=== PATIENT | female | born 1955 | race African-American/Black ===

== ENCOUNTER 2016-03-26 17:59 | Inpatient (IN) | payer OTHER ==
[2016-03-26 20:17] VITALS: BMI 28.1
--- NOTE | 2016-03-26 21:42 | HP ---
Admission ROS [facility] Chief Complaint: I WANT TO GO TO REHAB Allergies/Adverse Reactions: Allergies Allergy/AdvReac Type Severity Reaction Status Date / Time No Known Allergies Allergy Verified 03/26/16 20:51 History of Present Illness: 60 YEARS OLD FEMALE WITH LONG HISTORY OF ALCOHOL NICOTINE DEPENDENCE, HAS DIABETES II ASTHMA AND DEPRESSION IS ADMITTED TO REHAB Exam Limitations: No Limitations - Ebola screening Have you traveled outside of the country in the last 21 days: No Have you had contact with anyone from an Ebola affected area: No Have you been sick,other than usual withdrawal symptoms: No Do you have a fever: No - Review of Systems Constitutional: Weight Stable EENT: reports: Other (EYE GLASSES) Respiratory: reports: SOB with Exertion, Productive cough Cardiac: reports: No Symptoms Reported GI: reports: Constipated : reports: No Symptoms Reported Musculoskeletal: reports: Back Pain, Muscle Pain (LEFT KNEE) Integumentary: reports: Change in Color (RIGHT ANKLE ULCER HEALED) Neuro: reports: No Symptoms reported Endocrine: reports: No Symptoms Reported Hematology: reports: No Symptoms Reported Psychiatric: reports: Judgement Intact, Orientated x3, Depressed Other Systems: Reviewed and Negative Patient History - Patient Medical History Hx Anemia: No Hx Asthma: Yes Hx Chronic Obstructive Pulmonary Disease (COPD): No Hx Cancer: No Hx Cardiac Disorders: No Hx Congestive Heart Failure: No Hx Hypertension: No Hx Hypercholesterolemia: No Hx Pacemaker: No HX Cerebrovascular Accident: No Hx Seizures: No Hx Dementia: No Hx Diabetes: Yes Hx Gastrointestinal Disorders: No Hx Liver Disease: No Hx Genitourinary Disorders: No Hx Sexually Transmitted Disorders: No Hx Renal Disease (ESRD): No Hx Thyroid Disease: No Hx Human Immunodeficiency Virus (HIV): No Hx Hepatitis C: No Hx Depression: Yes Hx Suicide Attempt: No Hx Bipolar Disorder: No Hx Schizophrenia: No - Patient Surgical History Past Surgical History: Yes Hx Neurologic Surgery: No Hx Cataract Extraction: No Hx Cardiac Surgery: No Hx Lung Surgery: No Hx Breast Surgery: No Hx Breast Biopsy: No Hx Abdominal Surgery: No Hx Appendectomy: No Hx Cholecystectomy: No Hx Genitourinary Surgery: No Hx Section: Yes (37 YEARS OLD) Hx Orthopedic Surgery: Yes (RIGHT FOOT 2ND TOE 2015, LEFT KNEE 2014) Hx Hysterectomy: No Anesthesia Reaction: No - PPD History Previous Implant?: Yes Documented Results: Positive w/o proof Implanted On Prior [facility] Admission?: No PPD to be Administered?: No - Reproductive History Patient is a Female of Child Bearing Age (11 -55 yrs old): No - Smoking Cessation Smoking history: Current every day smoker Have you smoked in the past 12 months: Yes Aproximately how many cigarettes per day: 1 Cigars Per Day: 0 Hx Chewing Tobacco Use: No Initiated information on smoking cessation: Yes 'Breaking Loose' booklet given: 03/26/16 - Substance & Tx. History Hx Alcohol Use: Yes Hx Substance Use: Yes Substance Use Type: Alcohol, Cocaine Hx Substance Use Treatment: Yes - Substances Abused Alcohol Route: Oral Frequency: 3-6 times per week Amount used: [id number] BEER Age of first use: 58 Date of Last Use: 03/26/16 Family Disease History - Family Disease History Family Disease History: Diabetes: Father, Mother, Brother, Sister Admission Physical Exam BHS - Vital Signs Vital Signs: Vital Signs - 24 hr 03/26/16 20:13 Temperature 97.6 F Pulse Rate 92 H Respiratory 20 Rate Blood Pressure 130/67 - Physical General Appearance: Yes: No Apparent Distress, Nourished, Appropriately Dressed HEENTM: Yes: Hearing grossly Normal, Normal ENT Inspection, Normocephalic, Normal Voice Respiratory: Yes: Chest Non-Tender, No Respiratory Distress, No Accessory Muscle Use, Crackles, Wheezing, Expiration, Hyperresonant Neck: Yes: Supple, Trachea in good position Breast: Yes: Breasts Symetrical Cardiology: Yes: Regular Rhythm, Regular Rate, S1, S2 Abdominal: Yes: Non Tender, Soft Genitourinary: Yes: Within Normal Limits Back: Yes: Normal Inspection Musculoskeletal: Yes: full range of Motion, Gait Steady, Muscle Pain (LEFT KNEE) Extremities: Yes: Normal Range of Motion, Non-Tender, Other (HAMMER TOE-) Neurological: Yes: Fully Oriented, Alert, Motor Strength 5/5, Normal Mood/Affect , Normal Response Integumentary: Yes: Warm, Erythema (RIGHT ANKLE CHRONIC DM LESION) Lymphatic: Yes: Within Normal Limits - Diagnostic (1) Alcohol dependence with uncomplicated withdrawal Current Visit: Yes Status: Acute (2) Positive PPD, treated Current Visit: Yes Status: Resolved (3) Asthma Current Visit: Yes Status: Acute Qualifiers: Asthma severity: mild persistent Asthma complication type: with status asthmaticus Qualified Code(s): J45.32 - Mild persistent asthma with status asthmaticus (4) COPD (chronic obstructive pulmonary disease) Current Visit: Yes Status: Acute Qualifiers: COPD type: emphysema Emphysema type: unilateral Qualified Code(s ): J43.0 - Unilateral pulmonary emphysema [MacLeod's syndrome] (5) Nicotine dependence Current Visit: Yes Status: Acute Qualifiers: Nicotine product type: cigarettes Substance use status: uncomplicated Qualified Code(s): F17.210 - Nicotine dependence, cigarettes, uncomplicated (6) Constipation Current Visit: Yes Status: Acute Qualifiers: Constipation type: slow transit constipation Qualified Code(s): K59.01 - Slow transit constipation (7) Depression (emotion) Current Visit: Yes Status: Suspected Qualifiers: Depression Type: dysthymia Qualified Code(s): F34.1 - Dysthymic disorder (8) Diabetes mellitus, type II, insulin dependent Current Visit: Yes Status: Acute Comment: BGM/METFORMIN/ (9) Diabetes with ulcer of lower extremity Current Visit: Yes Status: Acute Comment: RIGHT ANKLE (10) Urinary incontinence Current Visit: Yes Status: Acute Qualifiers: Urinary Incontinence type: stress incontinence Qualified Code(s): N39.3 - Stress incontinence (female) (male) (11) Diabetes with neurologic complications Current Visit: Yes Status: Acute Qualifiers: Diabetes mellitus type: type 2 Diabetes mellitus complication detail: with polyneuropathy Diabetes mellitus terminal clerk insulin use: with terminal clerk use Qualified Code(s): E11.42 - Type 2 diabetes mellitus with diabetic polyneuropathy; Z79.4 - terminal operations manager (current) use of insulin Cleared for Admission S - Detox or Rehab [facility] Level of Care: Observation Bed Claeared for Rehab Admission: Yes [facility] Breath Alcohol Content Breath Alcohol Content: 0 Urine Pregancy Test - Result Urine Test Results: Negative- NO Line Present Urine Drug Screen - Results Drug Screen Negative: No Urine Drug Screen Results: DEIDRE-Cocaine
[2016-03-26] MEDS ORDERED: P-EPHED 60MG/TRIPROLIDI 2.5MG TABLET PO PRN (21:50)
[2016-03-26] MEDS ORDERED: MAGNESIUM CITRATE 300 ML BOTTLE PO PRN (21:50)
[2016-03-26] MEDS ORDERED: IBUPROFEN 400 MG TABLET (FP) PO PRN (21:50)
[2016-03-26] MEDS ORDERED: MAGNESIUM HYDROX 2400MG/30ML ORAL SUSPENSION 30 ML CUP PO PRN (21:50)
[2016-03-26] MEDS ORDERED: guaiFENesin/D-METHORPHAN HB 10 ML UNIT-DOSE CUPS PO PRN (21:50)
[2016-03-26] MEDS ORDERED: hydrOXYzine PAMOATE 50 MG CAPSULE (FP) PO PRN (22:00)
[2016-03-26] MEDS ORDERED: NICOTINE POLACRILEX 2 MG GUM BUC PRN (22:00)
[2016-03-26] MEDS ORDERED: ALBUTEROL SO4 2.5/IPRATROPIUM 0.5 INH SOL 3 ML VIAL.NEB. NEB PRN (22:10)
[2016-03-26] MEDS ORDERED: DOCUSATE SODIUM 100 MG CAPSULE (FP) PO PRN (22:11)
[2016-03-26] MEDS: THIAMINE HCL 100 MG TABLET (FP) PO SCH (22:30)
[2016-03-26 23:07] LABS: URINE APPEARANCE CLEAR; URINE BILIRUBIN NEGATIVE (NEGATIVE); URINE BLOOD NEGATIVE (NEGATIVE); URINE COLOR YELLOW; URINE GLUCOSE (UA) 3+ (NEGATIVE); URINE KETONE TRACE (NEGATIVE); URINE NITRITE NEGATIVE (NEGATIVE); URINE UROBILINOGEN NEGATIVE E.U./dl (0.2-1.0)
[2016-03-26 23:15] LABS: URINE LEUK ESTERASE TRACE (NEGATIVE); URINE PROTEIN 1+ (NEGATIVE)
[2016-03-26 23:18] LABS: URINE BACTERIA RARE /hpf (NONE SEEN); URINE HYALINE CAST 1 /lpf; URINE MUCUS RARE; URINE RBC 2 /hpf (0-3); URINE WBC 3 /hpf (3-5)
[2016-03-27] MEDS: diphenhydrAMINE HCL 50 MG CAPSULE PO PRN ×2 (00:26→21:36)
[2016-03-27] MEDS: ALBUTEROL SO4 6.7 GM HFA INHALER IH PRN (00:29)
[2016-03-27] MEDS: INSULIN SLIDING SCALE (NOVOLOG) 1 VIAL SQ SCH ×3 (06:13→17:16)
[2016-03-27] MEDS: GABAPENTIN 300 MG CAPSULE (FP) PO SCH ×3 (06:15→21:32)
[2016-03-27] MEDS ORDERED: INSULIN (NOVOLOG) ASPART 100 UNITS/ML 10ML VIAL ONE ×4 (06:15→16:41)
[2016-03-27] MEDS: metFORMIN HCL 500 MG TABLET (FP) PO SCH ×2 (06:15→17:16)
[2016-03-27] MEDS: LOPERAMIDE HCL 2 MG CAPSULE PO PRN ×2 (07:19→13:54)
[2016-03-27 10:16] LABS: MCH 31.3 pg (25.7-33.7); MCHC 32.4 g/dl (32.0-36.0); MEAN CELL VOLUME 96.4 fl (80-96); MEAN PLT VOLUME 9.5 fl (7.5-11.1); PLATELET COUNT 268 K/MM3 (134-434); WHITE BLOOD COUNT 8.4 K/mm3 (4.0-10.0)
[2016-03-27 10:32] LABS: ALBUMIN 3.7 g/dl (3.4-5.0); BILIRUBIN,TOTAL 0.3 mg/dL (0.2-1.0); CREATININE 1.3 mg/dL (0.55-1.02); TOT PROT 7.1 g/dl (6.4-8.2)
[2016-03-27] MEDS: NICOTINE 14 MG/24 HOURS TOPICAL PATCH TD SCH (10:42)
[2016-03-27] MEDS: OXYBUTYNIN CHLORIDE 5 MG TABLET PO SCH ×2 (10:43→21:31)
[2016-03-27] MEDS: predniSONE 20 MG TABLET (UD) PO SCH (10:43)
[2016-03-27] MEDS: PRENATAL VITAMINS W/ FOLIC ACID TABLET (FP) PO SCH (10:43)
[2016-03-27] MEDS: BUDESONIDE/FORMETEROL FUMARATE 80/4.5 mcg INHALER IH SCH ×2 (10:44→21:33)
[2016-03-27 11:45] LABS: HIV 1 & 2 AB NEGATIVE; HIV 1 AGp24 NEGATIVE
[2016-03-27] MEDS: THIAMINE HCL 100 MG TABLET (FP) PO SCH (21:31)
[2016-03-27] MEDS: ATORVASTATIN CA 10 MG TABLET (FP) PO SCH (21:34)
[2016-03-27] MEDS: MONTELUKAST NA 10 MG TABLET PO SCH (21:35)
[2016-03-28] MEDS: GABAPENTIN 300 MG CAPSULE (FP) PO SCH ×3 (06:12→21:12)
[2016-03-28] MEDS: metFORMIN HCL 500 MG TABLET (FP) PO SCH ×2 (06:12→16:51)
[2016-03-28] MEDS: INSULIN SLIDING SCALE (NOVOLOG) 1 VIAL SQ SCH ×3 (06:12→16:52)
[2016-03-28] MEDS: OXYBUTYNIN CHLORIDE 5 MG TABLET PO SCH ×2 (10:24→21:12)
[2016-03-28] MEDS: predniSONE 20 MG TABLET (UD) PO SCH (10:24)
[2016-03-28] MEDS: NICOTINE 14 MG/24 HOURS TOPICAL PATCH TD SCH (10:24)
[2016-03-28] MEDS: PRENATAL VITAMINS W/ FOLIC ACID TABLET (FP) PO SCH (10:25)
[2016-03-28] MEDS: BUDESONIDE/FORMETEROL FUMARATE 80/4.5 mcg INHALER IH SCH ×2 (10:26→21:08)
[2016-03-28] MEDS ORDERED: INSULIN (NOVOLOG) ASPART 100 UNITS/ML 10ML VIAL ONE ×2 (12:04→16:51)
--- NOTE | 2016-03-28 15:23 | HP ---
Psychiatrist Admission - Data Date of interview: 03/28/16 Admission source: [facility] Identifying data: This is the first admission to [address] [place] [address] for this 60 years old AA single female mother of 2 grown children ,resides alone in Supportive Housing,[place]. Medical History: Significant for DM,Urinary incontinence,COPD. Psychiatric History: Patient denies previous psychiatric history ,reports some sleeping difficulties ,used to take Ambien,Benadryl for sleep. Physical/Sexual Abuse/Trauma History: denies Vital Signs: Vital Signs - 24 hr 03/28/16 03/28/16 03/28/16 00:30 03:30 06:37 Temperature 98.2 F Pulse Rate 65 Respiratory 18 18 16 Rate Blood Pressure 148/98 Allergies/Adverse Reactions: Allergies Allergy/AdvReac Type Severity Reaction Status Date / Time No Known Allergies Allergy Verified 03/26/16 20:51 Date of last physical exam: 03/26/16 Concur with the findings of this exam: Yes - Substance Abuse/Tx History Hx Alcohol Use: No (socially) Hx Substance Use: Yes (reports started cocaine since 30 yo) Substance Use Type: Cocaine Hx Substance Use Treatment: Yes (completed 28 days in 1989([facility] program)) - Admission Criteria Previous failed treatment: Yes Poor recovery environment: Yes Comorbidities: Yes Lacks judgement: Yes Mental Status Exam - Mental Status Exam Alert and Oriented to: Time, Place, Person Cognitive Function: Grossly Intact Patient Appearance: Well Groomed Mood: Euthymic Affect: Mood Congruent Patient Behavior: Cooperative Speech Pattern: Clear Voice Loudness: Normal Thought Process: Goal Oriented Thought Disorder: Not Present Hallucinations: Denies Suicidal Ideation: Denies Homicidal Ideation: Denies Insight/Judgement: Fair Sleep: Fair Appetite: Good Muscle strength/Tone: Normal Gait/Station: Normal Psychiatric Findings - Problem List ([place] 1, 2,3) (1) Asthma Current Visit: Yes Status: Chronic Qualifiers: Asthma severity: mild persistent Asthma complication type: with status asthmaticus Qualified Code(s): J45.32 - Mild persistent asthma with status asthmaticus (2) COPD (chronic obstructive pulmonary disease) Current Visit: Yes Status: Chronic Qualifiers: COPD type: emphysema Emphysema type: unilateral Qualified Code(s ): J43.0 - Unilateral pulmonary emphysema [MacLeod's syndrome] (3) Diabetes mellitus, type II, insulin dependent Current Visit: Yes Status: Chronic Comment: BGM/METFORMIN/ (4) Diabetes with ulcer of lower extremity Current Visit: Yes Status: Chronic Comment: RIGHT ANKLE (5) Nicotine dependence Current Visit: Yes Status: Acute Qualifiers: Nicotine product type: cigarettes Substance use status: uncomplicated Qualified Code(s): F17.210 - Nicotine dependence, cigarettes, uncomplicated (6) Urinary incontinence Current Visit: Yes Status: Chronic Qualifiers: Urinary Incontinence type: stress incontinence Qualified Code(s): N39.3 - Stress incontinence (female) (male) (7) Cocaine dependence Current Visit: Yes Status: Chronic (8) Substance-induced sleep disorder Current Visit: Yes Status: Chronic - Initial Treatment Plan Initial Treatment Plan: Benadryl 100 mg po hs.Will monitor progress.
[2016-03-28] MEDS: MONTELUKAST NA 10 MG TABLET PO SCH (21:10)
[2016-03-28] MEDS: THIAMINE HCL 100 MG TABLET (FP) PO SCH (21:10)
[2016-03-28] MEDS: INSULIN DETEMIR 100 UNITS/ML MDV SQ SCH (21:12)
[2016-03-28] MEDS: diphenhydrAMINE HCL 50 MG CAPSULE PO SCH (21:12)
[2016-03-28] MEDS: ATORVASTATIN CA 10 MG TABLET (FP) PO SCH (21:12)
[2016-03-29] MEDS: metFORMIN HCL 500 MG TABLET (FP) PO SCH ×2 (06:49→17:15)
[2016-03-29] MEDS: GABAPENTIN 300 MG CAPSULE (FP) PO SCH ×3 (06:49→21:30)
[2016-03-29] MEDS: INSULIN SLIDING SCALE (NOVOLOG) 1 VIAL SQ SCH ×3 (06:50→17:14)
[2016-03-29] MEDS: PRENATAL VITAMINS W/ FOLIC ACID TABLET (FP) PO SCH (10:09)
[2016-03-29] MEDS: predniSONE 20 MG TABLET (UD) PO SCH (10:09)
[2016-03-29] MEDS: OXYBUTYNIN CHLORIDE 5 MG TABLET PO SCH ×2 (10:10→21:30)
[2016-03-29] MEDS: NICOTINE 14 MG/24 HOURS TOPICAL PATCH TD SCH (10:10)
[2016-03-29] MEDS: BUDESONIDE/FORMETEROL FUMARATE 80/4.5 mcg INHALER IH SCH ×2 (10:10→21:29)
[2016-03-29] MEDS: ACETAMINOPHEN 325 MG TABLET (FP) PO PRN (10:13)
[2016-03-29] MEDS ORDERED: INSULIN (NOVOLOG) ASPART 100 UNITS/ML 10ML VIAL ONE ×3 (12:08→22:39)
[2016-03-29] MEDS: ATORVASTATIN CA 10 MG TABLET (FP) PO SCH (21:30)
[2016-03-29] MEDS: MONTELUKAST NA 10 MG TABLET PO SCH (21:30)
[2016-03-29] MEDS: diphenhydrAMINE HCL 50 MG CAPSULE PO SCH (21:30)
[2016-03-29] MEDS: THIAMINE HCL 100 MG TABLET (FP) PO SCH (21:30)
[2016-03-29] MEDS: INSULIN DETEMIR 100 UNITS/ML MDV SQ SCH (21:34)
[2016-03-30] MEDS: GABAPENTIN 300 MG CAPSULE (FP) PO SCH ×3 (06:19→21:27)
[2016-03-30] MEDS: metFORMIN HCL 500 MG TABLET (FP) PO SCH ×2 (06:19→17:28)
[2016-03-30] MEDS: INSULIN SLIDING SCALE (NOVOLOG) 1 VIAL SQ SCH ×3 (06:20→17:29)
[2016-03-30] MEDS: OXYBUTYNIN CHLORIDE 5 MG TABLET PO SCH ×2 (10:12→21:27)
[2016-03-30] MEDS: predniSONE 20 MG TABLET (UD) PO SCH (10:12)
[2016-03-30] MEDS: PRENATAL VITAMINS W/ FOLIC ACID TABLET (FP) PO SCH (10:12)
[2016-03-30] MEDS: NICOTINE 14 MG/24 HOURS TOPICAL PATCH TD SCH (10:13)
[2016-03-30] MEDS: BUDESONIDE/FORMETEROL FUMARATE 80/4.5 mcg INHALER IH SCH ×2 (10:13→21:26)
[2016-03-30] MEDS ORDERED: INSULIN (NOVOLOG) ASPART 100 UNITS/ML 10ML VIAL ONE ×3 (11:57→23:42)
[2016-03-30] MEDS: ACETAMINOPHEN 325 MG TABLET (FP) PO PRN (13:48)
[2016-03-30] MEDS: MAG HYDROX/AL HYDROX/SIMETH 30 ML UNIT-DOSE CUP PO PRN (17:31)
[2016-03-30] MEDS: diphenhydrAMINE HCL 50 MG CAPSULE PO SCH (21:27)
[2016-03-30] MEDS: ATORVASTATIN CA 10 MG TABLET (FP) PO SCH (21:27)
[2016-03-30] MEDS: THIAMINE HCL 100 MG TABLET (FP) PO SCH (21:27)
[2016-03-30] MEDS: MONTELUKAST NA 10 MG TABLET PO SCH (21:27)
[2016-03-30] MEDS: IBUPROFEN 600 MG TABLET (FP) PO PRN (21:29)
[2016-03-30] MEDS: INSULIN DETEMIR 100 UNITS/ML MDV SQ SCH (21:31)
[2016-03-30] MEDS ORDERED: INSULIN DETEMIR 100 UNITS/ML MDV SQ ONE (23:42)
[2016-03-31] MEDS: metFORMIN HCL 500 MG TABLET (FP) PO SCH ×2 (06:03→17:06)
[2016-03-31] MEDS: GABAPENTIN 300 MG CAPSULE (FP) PO SCH ×3 (06:03→21:15)
[2016-03-31] MEDS: INSULIN SLIDING SCALE (NOVOLOG) 1 VIAL SQ SCH ×3 (06:04→17:06)
[2016-03-31] MEDS: NICOTINE 14 MG/24 HOURS TOPICAL PATCH TD SCH (10:05)
[2016-03-31] MEDS: PRENATAL VITAMINS W/ FOLIC ACID TABLET (FP) PO SCH (10:06)
[2016-03-31] MEDS: OXYBUTYNIN CHLORIDE 5 MG TABLET PO SCH ×2 (10:06→21:15)
[2016-03-31] MEDS: BUDESONIDE/FORMETEROL FUMARATE 80/4.5 mcg INHALER IH SCH ×2 (10:06→21:17)
[2016-03-31] MEDS: predniSONE 20 MG TABLET (UD) PO SCH (10:06)
[2016-03-31] MEDS ORDERED: INSULIN (NOVOLOG) ASPART 100 UNITS/ML 10ML VIAL ONE ×3 (12:01→22:26)
--- NOTE | 2016-03-31 14:40 | PN ---
Psychiatric Progress Note Vital Signs: Vital Signs Period Temp Pulse Resp BP Sys/Santiago Pulse Ox Last 24 Hr 98.0 F 58-86 16-18 131-146/74-89 Date of Session: 03/31/16 Chief Complaint:: "Paul still having sleeping problems,which makes me nervious, tired." HPI: Patient addressed Cocaine dependnec comorbid with Substance induced mood disorder. Current Medications: Active Medications Generic Name Dose Route Start Last Admin Trade Name Freq PRN Reason Stop Dose Admin Acetaminophen 650 mg 03/26/16 21:50 03/30/16 13:48 Tylenol - PO 650 mg Q4H PRN Administration PAIN Al Hydroxide/Mg Hydroxide 30 ml 03/26/16 21:50 03/30/16 17:31 Mylanta Oral Suspension - PO 30 ml Q6H PRN Administration DYSPEPSIA Albuterol Sulfate 2 puff 03/26/16 22:10 03/27/16 00:29 Ventolin Hfa Inhaler - IH 2 puff Q4H PRN Administration SHORT OF BREATH/WHEEZING Albuterol/Ipratropium 1 amp 03/26/16 22:10 Duoneb - NEB Q6H PRN SHORTNESS OF BREATH Atorvastatin Calcium 10 mg 03/27/16 22:00 03/30/16 21:27 Lipitor - PO 10 mg HS SUGEY Administration Budesonide/Formoterol Fumarate 2 puff 03/27/16 10:00 03/31/16 10:06 Symbicort 80/4.5mcg - IH 2 puff BID SUGEY Administration Diphenhydramine HCl 100 mg 03/28/16 22:00 03/30/16 21:27 Benadryl - PO 100 mg HS SUGEY Administration Docusate Sodium 100 mg 03/26/16 22:11 Colace - PO Q8H PRN CONSTIPATION Eucalyptus/Menthol/Phenol/Sorbitol 1 each 03/26/16 21:50 Cepastat Lozenge - MM Q4H PRN SORE THROAT Gabapentin 600 mg 03/27/16 06:00 03/31/16 14:19 Neurontin - PO 600 mg TID SUGEY Administration Guaifenesin 10 ml 03/26/16 21:50 Robitussin Dm - PO Q6H PRN COUGH Hydroxyzine Pamoate 50 mg 03/26/16 22:00 Vistaril - PO Q4H PRN AGITATION Ibuprofen 600 mg 03/26/16 22:46 03/30/16 21:29 Motrin - PO 600 mg Q6H PRN Administration SEVERE PAIN Insulin Aspart 1 vial 03/27/16 07:00 03/31/16 12:01 Novolog Vial Sliding Scale - SQ 2 units TIDAC SUGEY Administration Protocol Insulin Detemir 10 units 03/28/16 22:00 03/30/16 21:31 Levemir Vial SQ 10 units HS SUGEY Administration Lidocaine 1 patch 03/31/16 14:30 Lidoderm Patch - TP DAILY SUGEY Loperamide HCl 4 mg 03/26/16 21:50 03/27/16 13:54 Imodium - PO 4 mg Q6H PRN Administration DIARRHEA Magnesium Citrate 300 ml 03/26/16 21:50 Citroma - PO Q48H PRN CONSTIPATION Magnesium Hydroxide 30 ml 03/26/16 21:50 Milk Of Magnesia - PO DAILY PRN CONSTIPATION Metformin HCl 500 mg 03/27/16 07:00 03/31/16 06:03 Glucophage - PO 500 mg BID@0700,1630 SUGEY Administration Montelukast Sodium 10 mg 03/27/16 22:00 03/30/16 21:27 Singulair - PO 10 mg HS SUGEY Administration Multi-Ingredient Lotion 1 applic 03/31/16 14:24 Eucerin (Large Jar) - TP BID PRN DRY SKIN Nicotine 14 mg 03/27/16 10:00 03/31/16 10:05 Nicoderm Patch - TD Not Given DAILY SUGEY Nicotine Polacrilex 2 mg 03/26/16 22:00 Nicorette Gum - BUC Q2H PRN NICOTINE REPLACEMENT RX Oxybutynin Chloride 5 mg 03/27/16 10:00 03/31/16 10:06 Ditropan - PO 5 mg BID SUGEY Administration Prednisone 20 mg 03/27/16 10:00 03/31/16 10:06 Deltasone - PO 04/01/16 09:59 20 mg DAILY SUGEY Administration Multivit/Folic Acid/Iron 1 tab 03/27/16 10:00 03/31/16 10:06 Vitamins ([facility]jr) - PO 1 tab DAILY SUGEY Administration Pseudoephedrine/Triprolidine 1 combo 03/26/16 21:50 Actifed - PO TID PRN NASAL CONGESTION Thiamine HCl 100 mg 03/26/16 22:00 03/30/16 21:27 Vitamin B1 - PO 100 mg HS SUGEY Administration Current Side Effect: No Lab tests ordered: No Lab tests reviewed: Yes Provider note:: Patient was evaluated today,chart has been revuewed,medications and treatment plan has been discussed with the patient.Add Seroquel 50 mg po hs to reduce mood instability and sleeping difficulties.Side effcets and benefits of the above medication has been discussed. Supportive therapy provided. Total face to face time:: 30 Mental Status Exam - Mental Status Exam Alert and Oriented to: Time, Place, Person Cognitive Function: Grossly Intact Patient Appearance: Well Groomed Mood: Nervous Affect: Labile Patient Behavior: Cooperative Speech Pattern: Clear Voice Loudness: Normal Thought Process: Goal Oriented Thought Disorder: Not Present Hallucinations: Denies Suicidal Ideation: Denies Homicidal Ideation: Denies Insight/Judgement: Fair Sleep: Difficulty falling asleep Appetite: Good Muscle strength/Tone: Normal Gait/Station: Normal Psychiatric Treatment Plan - Problem List (1) Asthma Current Visit: Yes Qualifiers: Asthma severity: mild persistent Asthma complication type: with status asthmaticus Qualified Code(s): J45.32 - Mild persistent asthma with status asthmaticus (2) COPD (chronic obstructive pulmonary disease) Current Visit: Yes Qualifiers: COPD type: emphysema Emphysema type: unilateral Qualified Code(s ): J43.0 - Unilateral pulmonary emphysema [MacLeod's syndrome] (3) Diabetes mellitus, type II, insulin dependent Current Visit: Yes Comment: BGM/METFORMIN/ (4) Diabetes with ulcer of lower extremity Current Visit: Yes Comment: RIGHT ANKLE (5) Nicotine dependence Current Visit: Yes Qualifiers: Nicotine product type: cigarettes Substance use status: uncomplicated Qualified Code(s): F17.210 - Nicotine dependence, cigarettes, uncomplicated (6) Urinary incontinence Current Visit: Yes Qualifiers: Urinary Incontinence type: stress incontinence Qualified Code(s): N39.3 - Stress incontinence (female) (male) (7) Cocaine dependence Current Visit: Yes (8) Substance-induced sleep disorder Current Visit: Yes
[2016-03-31] MEDS: LIDOCAINE 5% TOPICAL PATCH TP SCH (15:13)
[2016-03-31] MEDS: ATORVASTATIN CA 10 MG TABLET (FP) PO SCH (21:15)
[2016-03-31] MEDS: MONTELUKAST NA 10 MG TABLET PO SCH (21:15)
[2016-03-31] MEDS: diphenhydrAMINE HCL 50 MG CAPSULE PO SCH (21:15)
[2016-03-31] MEDS: MAG HYDROX/AL HYDROX/SIMETH 30 ML UNIT-DOSE CUP PO PRN (21:15)
[2016-03-31] MEDS: QUEtiapine FUMARATE 50 MG TABLET PO SCH (21:19)
[2016-03-31] MEDS: THIAMINE HCL 100 MG TABLET (FP) PO SCH (21:20)
[2016-03-31] MEDS: INSULIN DETEMIR 100 UNITS/ML MDV SQ SCH (21:21)
[2016-03-31] MEDS: MINERAL OIL/PETROLAT/WATER TOPICAL CREAM 113 GM JAR TP PRN (22:24)
[2016-04-01] MEDS: metFORMIN HCL 500 MG TABLET (FP) PO SCH ×2 (06:09→16:57)
[2016-04-01] MEDS: GABAPENTIN 300 MG CAPSULE (FP) PO SCH ×3 (06:09→21:24)
[2016-04-01] MEDS: INSULIN SLIDING SCALE (NOVOLOG) 1 VIAL SQ SCH ×3 (06:10→16:58)
[2016-04-01] MEDS: MAG HYDROX/AL HYDROX/SIMETH 30 ML UNIT-DOSE CUP PO PRN (08:42)
[2016-04-01] MEDS: LIDOCAINE 5% TOPICAL PATCH TP SCH (10:04)
[2016-04-01] MEDS: OXYBUTYNIN CHLORIDE 5 MG TABLET PO SCH ×2 (10:06→21:26)
[2016-04-01] MEDS: PRENATAL VITAMINS W/ FOLIC ACID TABLET (FP) PO SCH (10:06)
[2016-04-01] MEDS: NICOTINE 14 MG/24 HOURS TOPICAL PATCH TD SCH (10:06)
[2016-04-01] MEDS: BUDESONIDE/FORMETEROL FUMARATE 80/4.5 mcg INHALER IH SCH ×2 (10:07→21:24)
[2016-04-01] MEDS: IBUPROFEN 600 MG TABLET (FP) PO PRN (10:08)
[2016-04-01] MEDS ORDERED: INSULIN (NOVOLOG) ASPART 100 UNITS/ML 10ML VIAL ONE ×2 (12:07→16:58)
[2016-04-01] MEDS ORDERED: RANITIDINE HCL 150 MG TABLET (FP) PO ONE (14:14)
[2016-04-01] MEDS: INSULIN DETEMIR 100 UNITS/ML MDV SQ SCH (21:22)
[2016-04-01] MEDS: MINERAL OIL/PETROLAT/WATER TOPICAL CREAM 113 GM JAR TP PRN (21:24)
[2016-04-01] MEDS: diphenhydrAMINE HCL 50 MG CAPSULE PO SCH (21:25)
[2016-04-01] MEDS: RANITIDINE HCL 150 MG TABLET (FP) PO SCH (21:25)
[2016-04-01] MEDS: QUEtiapine FUMARATE 50 MG TABLET PO SCH (21:25)
[2016-04-01] MEDS: MONTELUKAST NA 10 MG TABLET PO SCH (21:26)
[2016-04-01] MEDS: ACETAMINOPHEN 325 MG TABLET (FP) PO PRN (21:26)
[2016-04-01] MEDS: THIAMINE HCL 100 MG TABLET (FP) PO SCH (21:26)
[2016-04-01] MEDS: ATORVASTATIN CA 10 MG TABLET (FP) PO SCH (21:26)
[2016-04-02] MEDS: INSULIN SLIDING SCALE (NOVOLOG) 1 VIAL SQ SCH ×3 (06:21→16:49)
[2016-04-02] MEDS: GABAPENTIN 300 MG CAPSULE (FP) PO SCH ×3 (06:21→21:23)
[2016-04-02] MEDS: metFORMIN HCL 500 MG TABLET (FP) PO SCH ×2 (06:21→16:48)
[2016-04-02] MEDS: LIDOCAINE 5% TOPICAL PATCH TP SCH (09:56)
[2016-04-02] MEDS: PRENATAL VITAMINS W/ FOLIC ACID TABLET (FP) PO SCH (09:57)
[2016-04-02] MEDS: BUDESONIDE/FORMETEROL FUMARATE 80/4.5 mcg INHALER IH SCH ×2 (09:57→21:21)
[2016-04-02] MEDS: NICOTINE 14 MG/24 HOURS TOPICAL PATCH TD SCH (09:57)
[2016-04-02] MEDS: RANITIDINE HCL 150 MG TABLET (FP) PO SCH ×2 (09:57→21:23)
[2016-04-02] MEDS: OXYBUTYNIN CHLORIDE 5 MG TABLET PO SCH ×2 (09:57→21:22)
[2016-04-02] MEDS: ALBUTEROL SO4 6.7 GM HFA INHALER IH PRN (10:00)
--- NOTE | 2016-04-02 10:26 | EKG ---
Test Reason : Blood Pressure : / mmHG Vent. Rate : 086 BPM Atrial Rate : 086 BPM P-R Int : 148 ms QRS Dur : 088 ms QT Int : 422 ms P-R-T Axes : 069 056 084 degrees QTc Int : 504 ms NORMAL SINUS RHYTHM POSSIBLE LEFT ATRIAL ENLARGEMENT PROLONGED QT ABNORMAL ECG NO PREVIOUS ECGS AVAILABLE Confirmed by TRENTON CORONA MD ([id number]) on 04/02/2016 10:26:18 AM Referred By: Confirmed By:TRENTON CORONA MD
[2016-04-02] MEDS ORDERED: PT OWN MED DRAWER 7, Y5N ONE (15:54)
--- NOTE | 2016-04-02 16:02 | PN ---
Psychiatric Progress Note Vital Signs: Vital Signs Period Temp Pulse Resp BP Sys/Santiago Pulse Ox Last 24 Hr 97.8 F 67-82 18-18 131-135/75-85 Date of Session: 04/02/16 Chief Complaint:: Paul still not sleeping,feeling tired next day. HPI: Patient addressed Cocaine dependence comorbid with Substance induced mood/ sleep disorder. ROS: Multiple medical problems. Current Medications: Active Medications Generic Name Dose Route Start Last Admin Trade Name Freq PRN Reason Stop Dose Admin Acetaminophen 650 mg 03/26/16 21:50 04/01/16 21:26 Tylenol - PO 650 mg Q4H PRN Administration PAIN Al Hydroxide/Mg Hydroxide 30 ml 03/26/16 21:50 04/01/16 08:42 Mylanta Oral Suspension - PO 30 ml Q6H PRN Administration DYSPEPSIA Albuterol Sulfate 2 puff 03/26/16 22:10 04/02/16 10:00 Ventolin Hfa Inhaler - IH 2 puff Q4H PRN Administration SHORT OF BREATH/WHEEZING Albuterol/Ipratropium 1 amp 03/26/16 22:10 Duoneb - NEB Q6H PRN SHORTNESS OF BREATH Atorvastatin Calcium 10 mg 03/27/16 22:00 04/01/16 21:26 Lipitor - PO 10 mg HS SUGEY Administration Budesonide/Formoterol Fumarate 2 puff 03/27/16 10:00 04/02/16 09:57 Symbicort 80/4.5mcg - IH 2 puff BID SUGEY Administration Diphenhydramine HCl 100 mg 03/28/16 22:00 04/01/16 21:25 Benadryl - PO 100 mg HS SUGEY Administration Docusate Sodium 100 mg 03/26/16 22:11 Colace - PO Q8H PRN CONSTIPATION Eucalyptus/Menthol/Phenol/Sorbitol 1 each 03/26/16 21:50 Cepastat Lozenge - MM Q4H PRN SORE THROAT Gabapentin 600 mg 03/27/16 06:00 04/02/16 13:09 Neurontin - PO 600 mg TID SUGEY Administration Guaifenesin 10 ml 03/26/16 21:50 Robitussin Dm - PO Q6H PRN COUGH Hydroxyzine Pamoate 50 mg 03/26/16 22:00 Vistaril - PO Q4H PRN AGITATION Ibuprofen 600 mg 03/26/16 22:46 04/01/16 10:08 Motrin - PO 600 mg Q6H PRN Administration SEVERE PAIN Insulin Aspart 1 vial 03/27/16 07:00 04/02/16 12:05 Novolog Vial Sliding Scale - SQ Not Given TIDAC [facility] Protocol Insulin Detemir 10 units 03/28/16 22:00 04/01/16 21:22 Levemir Vial SQ 10 units HS SUGEY Administration Lidocaine 1 patch 03/31/16 14:30 04/02/16 09:56 Lidoderm Patch - TP 1 patch DAILY SUGEY Administration Loperamide HCl 4 mg 03/26/16 21:50 03/27/16 13:54 Imodium - PO 4 mg Q6H PRN Administration DIARRHEA Magnesium Citrate 300 ml 03/26/16 21:50 Citroma - PO Q48H PRN CONSTIPATION Magnesium Hydroxide 30 ml 03/26/16 21:50 Milk Of Magnesia - PO DAILY PRN CONSTIPATION Metformin HCl 500 mg 03/27/16 07:00 04/02/16 06:21 Glucophage - PO 500 mg BID@0700,1630 SUGEY Administration Montelukast Sodium 10 mg 03/27/16 22:00 04/01/16 21:26 Singulair - PO 10 mg HS SUGEY Administration Multi-Ingredient Lotion 1 applic 03/31/16 14:24 04/01/16 21:24 Eucerin (Small Jar) - TP 1 applic BID PRN Administration DRY SKIN Nicotine 14 mg 03/27/16 10:00 04/02/16 09:57 Nicoderm Patch - TD Not Given DAILY SUGEY Nicotine Polacrilex 2 mg 03/26/16 22:00 Nicorette Gum - BUC Q2H PRN NICOTINE REPLACEMENT RX Oxybutynin Chloride 5 mg 03/27/16 10:00 04/02/16 09:57 Ditropan - PO 5 mg BID SUGEY Administration Multivit/Folic Acid/Iron 1 tab 03/27/16 10:00 04/02/16 09:57 Vitamins (Sjr) - PO 1 tab DAILY SUGEY Administration Pseudoephedrine/Triprolidine 1 combo 03/26/16 21:50 Actifed - PO TID PRN NASAL CONGESTION Ranitidine HCl 150 mg 04/01/16 22:00 04/02/16 09:57 Zantac - PO 150 mg BID SUGEY Administration Thiamine HCl 100 mg 03/26/16 22:00 04/01/16 21:26 Vitamin B1 - PO 100 mg HS SUGEY Administration Current Side Effect: No Lab tests ordered: No Lab tests reviewed: Yes Provider note:: Patient was evaluated in my office today.She addressed ongoing sleeping difficulties :inability to fall asleep and interrupted sleep pattern.Reports that she used to medicate her self with drugs to struggle with insomnia.She also has been on Ambien with some response.Properties of Seroquel has been discussed with the patient including side effects,benefits adn dose adjustment.Seroquel 50 mg po hs will be adjusted to 100 mg po hs. Supportive therapy provided. Total face to face time:: 30 Mental Status Exam - Mental Status Exam Alert and Oriented to: Time, Place, Person Cognitive Function: Grossly Intact Patient Appearance: Well Groomed Mood: Anxious Affect: Mood Congruent, Labile Patient Behavior: Cooperative Speech Pattern: Clear Voice Loudness: Normal Thought Process: Goal Oriented Thought Disorder: Not Present Hallucinations: Denies Suicidal Ideation: Denies Homicidal Ideation: Denies Insight/Judgement: Fair Sleep: Difficulty falling asleep Appetite: Good Muscle strength/Tone: Normal Gait/Station: Normal Psychiatric Treatment Plan - Problem List (1) Asthma Current Visit: Yes Qualifiers: Asthma severity: mild persistent Asthma complication type: with status asthmaticus Qualified Code(s): J45.32 - Mild persistent asthma with status asthmaticus (2) COPD (chronic obstructive pulmonary disease) Current Visit: Yes Qualifiers: COPD type: emphysema Emphysema type: unilateral Qualified Code(s ): J43.0 - Unilateral pulmonary emphysema [MacLeod's syndrome] (3) Diabetes mellitus, type II, insulin dependent Current Visit: Yes Comment: BGM/METFORMIN/ (4) Diabetes with ulcer of lower extremity Current Visit: Yes Comment: RIGHT ANKLE (5) Nicotine dependence Current Visit: Yes Qualifiers: Nicotine product type: cigarettes Substance use status: uncomplicated Qualified Code(s): F17.210 - Nicotine dependence, cigarettes, uncomplicated (6) Urinary incontinence Current Visit: Yes Qualifiers: Urinary Incontinence type: stress incontinence Qualified Code(s): N39.3 - Stress incontinence (female) (male) (7) Cocaine dependence Current Visit: Yes (8) Substance-induced sleep disorder Current Visit: Yes
[2016-04-02] MEDS ORDERED: INSULIN (NOVOLOG) ASPART 100 UNITS/ML 10ML VIAL ONE (16:49)
[2016-04-02] MEDS: INSULIN DETEMIR 100 UNITS/ML MDV SQ SCH (21:20)
[2016-04-02] MEDS: MINERAL OIL/PETROLAT/WATER TOPICAL CREAM 113 GM JAR TP PRN (21:21)
[2016-04-02] MEDS: diphenhydrAMINE HCL 50 MG CAPSULE PO SCH (21:21)
[2016-04-02] MEDS: ATORVASTATIN CA 10 MG TABLET (FP) PO SCH (21:23)
[2016-04-02] MEDS: QUEtiapine FUMARATE 100 MG TABLET (FP) PO SCH (21:23)
[2016-04-02] MEDS: MONTELUKAST NA 10 MG TABLET PO SCH (21:23)
[2016-04-02] MEDS: THIAMINE HCL 100 MG TABLET (FP) PO SCH (21:23)
[2016-04-03] MEDS: metFORMIN HCL 500 MG TABLET (FP) PO SCH ×2 (06:36→17:09)
[2016-04-03] MEDS: GABAPENTIN 300 MG CAPSULE (FP) PO SCH ×3 (06:36→21:53)
[2016-04-03] MEDS: INSULIN SLIDING SCALE (NOVOLOG) 1 VIAL SQ SCH ×3 (06:36→17:11)
[2016-04-03] MEDS ORDERED: PT OWN MED DRAWER 7, Y5N ONE (08:27)
[2016-04-03] MEDS: RANITIDINE HCL 150 MG TABLET (FP) PO SCH ×2 (09:59→21:52)
[2016-04-03] MEDS: OXYBUTYNIN CHLORIDE 5 MG TABLET PO SCH ×2 (09:59→21:52)
[2016-04-03] MEDS: PRENATAL VITAMINS W/ FOLIC ACID TABLET (FP) PO SCH (09:59)
[2016-04-03] MEDS: BUDESONIDE/FORMETEROL FUMARATE 80/4.5 mcg INHALER IH SCH ×2 (09:59→21:54)
[2016-04-03] MEDS: ALBUTEROL SO4 6.7 GM HFA INHALER IH PRN (10:02)
[2016-04-03] MEDS: NICOTINE 14 MG/24 HOURS TOPICAL PATCH TD SCH (10:02)
[2016-04-03] MEDS: LIDOCAINE 5% TOPICAL PATCH TP SCH (10:02)
[2016-04-03] MEDS ORDERED: INSULIN (NOVOLOG) ASPART 100 UNITS/ML 10ML VIAL ONE ×2 (12:02→17:07)
[2016-04-03] MEDS ORDERED: INSULIN DETEMIR 100 UNITS/ML MDV SQ ONE (17:06)
[2016-04-03] MEDS: ATORVASTATIN CA 10 MG TABLET (FP) PO SCH (21:52)
[2016-04-03] MEDS: MONTELUKAST NA 10 MG TABLET PO SCH (21:52)
[2016-04-03] MEDS: THIAMINE HCL 100 MG TABLET (FP) PO SCH (21:52)
[2016-04-03] MEDS: QUEtiapine FUMARATE 100 MG TABLET (FP) PO SCH (21:53)
[2016-04-03] MEDS: diphenhydrAMINE HCL 50 MG CAPSULE PO SCH (21:53)
[2016-04-03] MEDS: INSULIN DETEMIR 100 UNITS/ML MDV SQ SCH (21:55)
[2016-04-04] MEDS: GABAPENTIN 300 MG CAPSULE (FP) PO SCH ×3 (06:39→21:33)
[2016-04-04] MEDS: metFORMIN HCL 500 MG TABLET (FP) PO SCH ×2 (06:39→17:12)
[2016-04-04] MEDS: ALBUTEROL SO4 6.7 GM HFA INHALER IH PRN ×2 (06:42→10:45)
[2016-04-04] MEDS: INSULIN SLIDING SCALE (NOVOLOG) 1 VIAL SQ SCH ×3 (07:43→17:10)
[2016-04-04] MEDS: OXYBUTYNIN CHLORIDE 5 MG TABLET PO SCH ×2 (10:25→21:31)
[2016-04-04] MEDS: RANITIDINE HCL 150 MG TABLET (FP) PO SCH ×2 (10:25→21:31)
[2016-04-04] MEDS: NICOTINE 14 MG/24 HOURS TOPICAL PATCH TD SCH (10:25)
[2016-04-04] MEDS: PRENATAL VITAMINS W/ FOLIC ACID TABLET (FP) PO SCH (10:25)
[2016-04-04] MEDS: LIDOCAINE 5% TOPICAL PATCH TP SCH (10:25)
[2016-04-04] MEDS: BUDESONIDE/FORMETEROL FUMARATE 80/4.5 mcg INHALER IH SCH ×2 (10:26→21:34)
[2016-04-04] MEDS ORDERED: HYDROCORTISONE SOD SUCCINATE 100 MG/2 ML VIAL IM ONE (11:17)
[2016-04-04] MEDS ORDERED: INSULIN (NOVOLOG) ASPART 100 UNITS/ML 10ML VIAL ONE ×2 (11:58→16:52)
[2016-04-04] MEDS: IBUPROFEN 600 MG TABLET (FP) PO PRN ×2 (12:00→21:30)
[2016-04-04] MEDS: ACETAMINOPHEN 325 MG TABLET (FP) PO PRN (14:15)
--- NOTE | 2016-04-04 15:15 | PN ---
[facility] Progress Note Note: PT. C/O SOB AND WHEEZING,SOLU-CORTEF 50MG IM GIVEN. Vital Signs - 8 hr 04/04/16 04/04/16 04/04/16 07:18 09:41 10:40 Temperature 98.3 F Pulse Rate 73 105 H 92 H Respiratory 18 24 Rate Blood Pressure 125/82 128/80 112/77 O2 Sat by Pulse Oximetry (%) 04/04/16 10:41 Temperature Pulse Rate 92 H Respiratory Rate Blood Pressure O2 Sat by Pulse 100 Oximetry (%) Laboratory Tests 03/26/16 03/26/16 03/27/16 22:17 23:19 06:11 WBC RBC Hgb Hct MCV MCHC RDW Plt Count MPV Sodium Potassium Chloride Carbon Dioxide Anion Gap BUN Creatinine Creat Clearance w eGFR POC Glucometer 274 195 Random Glucose Hemoglobin A1c % Calcium Total Bilirubin AST ALT Alkaline Phosphatase Total Protein Albumin Urine Color Yellow Urine Appearance Clear Urine pH 5.0 Ur Specific [place] 1.023 Urine Protein 1+ H Urine Glucose (UA) 3+ H Urine Ketones Trace H Urine Blood Negative Urine Nitrite Negative Urine Bilirubin Negative Urine Urobilinogen Negative Ur Leukocyte Esterase Trace H Urine RBC 2 Urine WBC 3 Ur Epithelial Cells Rare Urine Bacteria Rare Hyaline Casts 1 Urine Mucus Rare RPR Titer HIV 1&2 Antibody Screen HIV P24 Antigen 03/27/16 03/27/16 03/27/16 07:00 07:00 07:00 WBC 8.4 RBC 4.31 Hgb 13.5 Hct 41.6 MCV 96.4 H MCHC 32.4 RDW 14.0 Plt Count 268 MPV 9.5 Sodium 143 Potassium 3.9 Chloride 109 H Carbon Dioxide 22 Anion Gap 12 BUN 11 Creatinine 1.3 H Creat Clearance w eGFR 41.78 POC Glucometer Random Glucose 139 H Hemoglobin A1c % Calcium 9.0 Total Bilirubin 0.3 AST 5 L ALT 21 Alkaline Phosphatase 120 H Total Protein 7.1 Albumin 3.7 Urine Color Urine Appearance Urine pH Ur Specific [place] Urine Protein Urine Glucose (UA) Urine Ketones Urine Blood Urine Nitrite Urine Bilirubin Urine Urobilinogen Ur Leukocyte Esterase Urine RBC Urine WBC Ur Epithelial Cells Urine Bacteria Hyaline Casts Urine Mucus RPR Titer Nonreactive HIV 1&2 Antibody Screen HIV P24 Antigen 03/27/16 03/27/16 03/27/16 07:00 07:00 11:35 WBC RBC Hgb Hct MCV MCHC RDW Plt Count MPV Sodium Potassium Chloride Carbon Dioxide Anion Gap BUN Creatinine Creat Clearance w eGFR POC Glucometer 245 Random Glucose Hemoglobin A1c % 8.7 H Calcium Total Bilirubin AST ALT Alkaline Phosphatase Total Protein Albumin Urine Color Urine Appearance Urine pH Ur Specific [place] Urine Protein Urine Glucose (UA) Urine Ketones Urine Blood Urine Nitrite Urine Bilirubin Urine Urobilinogen Ur Leukocyte Esterase Urine RBC Urine WBC Ur Epithelial Cells Urine Bacteria Hyaline Casts Urine Mucus RPR Titer HIV 1&2 Antibody Screen Negative HIV P24 Antigen Negative LABS NOTED LUNGS : GROSSLY CLEAR,PT. SAYS SHE STOPPED WHEEZING AFTER IM SOLU-CORTEF. P : START PREDNISONE TAPER
[2016-04-04] MEDS ORDERED: INSULIN DETEMIR 100 UNITS/ML MDV SQ ONE (16:52)
[2016-04-04] MEDS: ALBUTEROL SO4 2.5/IPRATROPIUM 0.5 INH SOL 3 ML VIAL.NEB. NEB SCH ×2 (17:12→21:32)
[2016-04-04] MEDS: ATORVASTATIN CA 10 MG TABLET (FP) PO SCH (21:31)
[2016-04-04] MEDS: diphenhydrAMINE HCL 50 MG CAPSULE PO SCH (21:31)
[2016-04-04] MEDS: MONTELUKAST NA 10 MG TABLET PO SCH (21:33)
[2016-04-04] MEDS: QUEtiapine FUMARATE 100 MG TABLET (FP) PO SCH (21:33)
[2016-04-04] MEDS: THIAMINE HCL 100 MG TABLET (FP) PO SCH (21:34)
[2016-04-04] MEDS: INSULIN DETEMIR 100 UNITS/ML MDV SQ SCH (21:36)
[2016-04-04] MEDS ORDERED: PT OWN MED DRAWER 7, Y5N ONE (21:37)
[2016-04-05] MEDS: ALBUTEROL SO4 2.5/IPRATROPIUM 0.5 INH SOL 3 ML VIAL.NEB. NEB PRN (06:12)
[2016-04-05] MEDS: GABAPENTIN 300 MG CAPSULE (FP) PO SCH ×3 (06:34→21:26)
[2016-04-05] MEDS: metFORMIN HCL 500 MG TABLET (FP) PO SCH ×2 (06:35→16:57)
[2016-04-05] MEDS: INSULIN SLIDING SCALE (NOVOLOG) 1 VIAL SQ SCH ×3 (06:37→16:58)
[2016-04-05] MEDS: NICOTINE 14 MG/24 HOURS TOPICAL PATCH TD SCH (10:02)
[2016-04-05] MEDS: LIDOCAINE 5% TOPICAL PATCH TP SCH (10:03)
[2016-04-05] MEDS: PRENATAL VITAMINS W/ FOLIC ACID TABLET (FP) PO SCH (10:04)
[2016-04-05] MEDS: OXYBUTYNIN CHLORIDE 5 MG TABLET PO SCH ×2 (10:04→21:26)
[2016-04-05] MEDS: BUDESONIDE/FORMETEROL FUMARATE 80/4.5 mcg INHALER IH SCH ×2 (10:04→21:24)
[2016-04-05] MEDS: predniSONE 20 MG TABLET (UD) PO SCH (10:04)
[2016-04-05] MEDS: ALBUTEROL SO4 2.5/IPRATROPIUM 0.5 INH SOL 3 ML VIAL.NEB. NEB SCH ×4 (10:04→21:27)
[2016-04-05] MEDS: RANITIDINE HCL 150 MG TABLET (FP) PO SCH ×2 (10:05→21:26)
[2016-04-05] MEDS: ALBUTEROL SO4 6.7 GM HFA INHALER IH PRN ×2 (10:06→16:19)
[2016-04-05] MEDS ORDERED: PT OWN MED DRAWER 7, Y5N ONE ×2 (10:06→20:12)
[2016-04-05] MEDS ORDERED: INSULIN (NOVOLOG) ASPART 100 UNITS/ML 10ML VIAL ONE ×2 (12:07→16:58)
[2016-04-05] MEDS: INSULIN DETEMIR 100 UNITS/ML MDV SQ SCH (21:23)
[2016-04-05] MEDS: diphenhydrAMINE HCL 50 MG CAPSULE PO SCH (21:25)
[2016-04-05] MEDS: ATORVASTATIN CA 10 MG TABLET (FP) PO SCH (21:25)
[2016-04-05] MEDS: MONTELUKAST NA 10 MG TABLET PO SCH (21:25)
[2016-04-05] MEDS: QUEtiapine FUMARATE 100 MG TABLET (FP) PO SCH (21:26)
[2016-04-05] MEDS: THIAMINE HCL 100 MG TABLET (FP) PO SCH (21:26)
[2016-04-06] MEDS: GABAPENTIN 300 MG CAPSULE (FP) PO SCH ×3 (06:21→21:21)
[2016-04-06] MEDS: metFORMIN HCL 500 MG TABLET (FP) PO SCH ×2 (06:21→17:00)
[2016-04-06] MEDS: INSULIN SLIDING SCALE (NOVOLOG) 1 VIAL SQ SCH ×3 (06:22→17:01)
[2016-04-06] MEDS: IBUPROFEN 600 MG TABLET (FP) PO PRN (07:28)
[2016-04-06] MEDS: predniSONE 20 MG TABLET (UD) PO SCH (10:05)
[2016-04-06] MEDS: LIDOCAINE 5% TOPICAL PATCH TP SCH (10:06)
[2016-04-06] MEDS: OXYBUTYNIN CHLORIDE 5 MG TABLET PO SCH ×2 (10:06→21:52)
[2016-04-06] MEDS: PRENATAL VITAMINS W/ FOLIC ACID TABLET (FP) PO SCH (10:06)
[2016-04-06] MEDS: NICOTINE 14 MG/24 HOURS TOPICAL PATCH TD SCH (10:06)
[2016-04-06] MEDS: ALBUTEROL SO4 2.5/IPRATROPIUM 0.5 INH SOL 3 ML VIAL.NEB. NEB SCH ×4 (10:06→21:22)
[2016-04-06] MEDS: RANITIDINE HCL 150 MG TABLET (FP) PO SCH ×2 (10:07→21:21)
[2016-04-06] MEDS: BUDESONIDE/FORMETEROL FUMARATE 80/4.5 mcg INHALER IH SCH ×2 (10:07→21:21)
[2016-04-06] MEDS ORDERED: INSULIN (NOVOLOG) ASPART 100 UNITS/ML 10ML VIAL ONE ×2 (12:04→17:01)
[2016-04-06] MEDS ORDERED: PT OWN MED DRAWER 7, Y5N ONE (20:12)
[2016-04-06] MEDS: INSULIN DETEMIR 100 UNITS/ML MDV SQ SCH (21:18)
[2016-04-06] MEDS: ATORVASTATIN CA 10 MG TABLET (FP) PO SCH (21:21)
[2016-04-06] MEDS: diphenhydrAMINE HCL 50 MG CAPSULE PO SCH (21:21)
[2016-04-06] MEDS: THIAMINE HCL 100 MG TABLET (FP) PO SCH (21:22)
[2016-04-06] MEDS: QUEtiapine FUMARATE 100 MG TABLET (FP) PO SCH (21:22)
[2016-04-06] MEDS: MONTELUKAST NA 10 MG TABLET PO SCH (21:22)
[2016-04-07] MEDS: metFORMIN HCL 500 MG TABLET (FP) PO SCH ×2 (06:11→16:58)
[2016-04-07] MEDS: MENTHOL/PHENOL 1 EACH UD MM PRN ×2 (06:11→10:16)
[2016-04-07] MEDS: GABAPENTIN 300 MG CAPSULE (FP) PO SCH ×3 (06:11→21:33)
[2016-04-07] MEDS: INSULIN SLIDING SCALE (NOVOLOG) 1 VIAL SQ SCH ×3 (06:11→16:59)
[2016-04-07] MEDS: ALBUTEROL SO4 2.5/IPRATROPIUM 0.5 INH SOL 3 ML VIAL.NEB. NEB PRN (07:33)
[2016-04-07] MEDS ORDERED: PT OWN MED DRAWER 7, Y5N ONE (08:51)
[2016-04-07] MEDS: LIDOCAINE 5% TOPICAL PATCH TP SCH (10:13)
[2016-04-07] MEDS: RANITIDINE HCL 150 MG TABLET (FP) PO SCH ×2 (10:13→21:32)
[2016-04-07] MEDS: OXYBUTYNIN CHLORIDE 5 MG TABLET PO SCH ×2 (10:13→21:33)
[2016-04-07] MEDS: predniSONE 5 MG TABLET (UD) PO SCH (10:14)
[2016-04-07] MEDS: PRENATAL VITAMINS W/ FOLIC ACID TABLET (FP) PO SCH (10:15)
[2016-04-07] MEDS: BUDESONIDE/FORMETEROL FUMARATE 80/4.5 mcg INHALER IH SCH ×2 (10:15→21:34)
[2016-04-07] MEDS: NICOTINE 14 MG/24 HOURS TOPICAL PATCH TD SCH (10:15)
[2016-04-07] MEDS: ALBUTEROL SO4 2.5/IPRATROPIUM 0.5 INH SOL 3 ML VIAL.NEB. NEB SCH ×4 (10:17→21:35)
[2016-04-07] MEDS ORDERED: INSULIN (NOVOLOG) ASPART 100 UNITS/ML 10ML VIAL ONE ×3 (11:52→22:15)
[2016-04-07] MEDS: QUEtiapine FUMARATE 100 MG TABLET (FP) PO SCH (21:32)
[2016-04-07] MEDS: ATORVASTATIN CA 10 MG TABLET (FP) PO SCH (21:33)
[2016-04-07] MEDS: diphenhydrAMINE HCL 50 MG CAPSULE PO SCH (21:33)
[2016-04-07] MEDS: THIAMINE HCL 100 MG TABLET (FP) PO SCH (21:33)
[2016-04-07] MEDS: MONTELUKAST NA 10 MG TABLET PO SCH (21:34)
[2016-04-07] MEDS: INSULIN DETEMIR 100 UNITS/ML MDV SQ SCH (21:35)
[2016-04-08] MEDS: metFORMIN HCL 500 MG TABLET (FP) PO SCH ×2 (06:29→17:01)
[2016-04-08] MEDS: GABAPENTIN 300 MG CAPSULE (FP) PO SCH ×3 (06:29→21:56)
[2016-04-08] MEDS: INSULIN SLIDING SCALE (NOVOLOG) 1 VIAL SQ SCH ×3 (07:29→17:02)
[2016-04-08] MEDS: MENTHOL/PHENOL 1 EACH UD MM PRN (07:38)
[2016-04-08] MEDS ORDERED: PT OWN MED DRAWER 7, Y5N ONE (10:12)
[2016-04-08] MEDS: predniSONE 5 MG TABLET (UD) PO SCH (10:20)
[2016-04-08] MEDS: NICOTINE 14 MG/24 HOURS TOPICAL PATCH TD SCH (10:20)
[2016-04-08] MEDS: RANITIDINE HCL 150 MG TABLET (FP) PO SCH ×2 (10:21→21:57)
[2016-04-08] MEDS: BUDESONIDE/FORMETEROL FUMARATE 80/4.5 mcg INHALER IH SCH ×2 (10:21→21:57)
[2016-04-08] MEDS: OXYBUTYNIN CHLORIDE 5 MG TABLET PO SCH ×2 (10:21→22:03)
[2016-04-08] MEDS: PRENATAL VITAMINS W/ FOLIC ACID TABLET (FP) PO SCH (10:22)
[2016-04-08] MEDS: ACETAMINOPHEN 325 MG TABLET (FP) PO PRN (10:23)
[2016-04-08] MEDS: ALBUTEROL SO4 2.5/IPRATROPIUM 0.5 INH SOL 3 ML VIAL.NEB. NEB SCH ×4 (10:24→22:03)
[2016-04-08] MEDS: LIDOCAINE 5% TOPICAL PATCH TP SCH ×2 (10:57→16:00)
[2016-04-08] MEDS ORDERED: INSULIN (NOVOLOG) ASPART 100 UNITS/ML 10ML VIAL ONE (17:01)
[2016-04-08] MEDS: diphenhydrAMINE HCL 50 MG CAPSULE PO SCH (21:56)
[2016-04-08] MEDS: ATORVASTATIN CA 10 MG TABLET (FP) PO SCH (21:56)
[2016-04-08] MEDS: THIAMINE HCL 100 MG TABLET (FP) PO SCH (21:56)
[2016-04-08] MEDS: QUEtiapine FUMARATE 100 MG TABLET (FP) PO SCH (21:57)
[2016-04-08] MEDS: MONTELUKAST NA 10 MG TABLET PO SCH (21:57)
[2016-04-08] MEDS: INSULIN DETEMIR 100 UNITS/ML MDV SQ SCH (22:02)
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
[2016-04-09] MEDS ORDERED: INSULIN (NOVOLOG) ASPART 100 UNITS/ML 10ML VIAL ONE ×4 (00:40→21:53)
[2016-04-09] MEDS: ALBUTEROL SO4 2.5/IPRATROPIUM 0.5 INH SOL 3 ML VIAL.NEB. NEB PRN (06:02)
[2016-04-09] MEDS: metFORMIN HCL 500 MG TABLET (FP) PO SCH ×2 (06:04→17:10)
[2016-04-09] MEDS: GABAPENTIN 300 MG CAPSULE (FP) PO SCH ×3 (06:04→21:01)
[2016-04-09] MEDS: INSULIN SLIDING SCALE (NOVOLOG) 1 VIAL SQ SCH ×3 (06:04→17:12)
[2016-04-09] MEDS ORDERED: PT OWN MED DRAWER 7, Y5N ONE ×2 (08:45→13:33)
[2016-04-09] MEDS: LIDOCAINE 5% TOPICAL PATCH TP SCH (10:13)
[2016-04-09] MEDS: RANITIDINE HCL 150 MG TABLET (FP) PO SCH ×2 (10:14→21:01)
[2016-04-09] MEDS: predniSONE 10 MG TABLET (UD) PO SCH (10:14)
[2016-04-09] MEDS: NICOTINE 14 MG/24 HOURS TOPICAL PATCH TD SCH (10:14)
[2016-04-09] MEDS: BUDESONIDE/FORMETEROL FUMARATE 80/4.5 mcg INHALER IH SCH ×2 (10:14→21:04)
[2016-04-09] MEDS: PRENATAL VITAMINS W/ FOLIC ACID TABLET (FP) PO SCH (10:14)
[2016-04-09] MEDS: OXYBUTYNIN CHLORIDE 5 MG TABLET PO SCH ×2 (10:14→21:01)
[2016-04-09] MEDS: ALBUTEROL SO4 2.5/IPRATROPIUM 0.5 INH SOL 3 ML VIAL.NEB. NEB SCH ×4 (10:15→21:03)
[2016-04-09] MEDS: MENTHOL/PHENOL 1 EACH UD MM PRN (13:22)
[2016-04-09] MEDS ORDERED: INSULIN DETEMIR 100 UNITS/ML MDV SQ ONE (16:44)
[2016-04-09] MEDS: diphenhydrAMINE HCL 50 MG CAPSULE PO SCH (21:01)
[2016-04-09] MEDS: THIAMINE HCL 100 MG TABLET (FP) PO SCH (21:01)
[2016-04-09] MEDS: MONTELUKAST NA 10 MG TABLET PO SCH (21:01)
[2016-04-09] MEDS: ATORVASTATIN CA 10 MG TABLET (FP) PO SCH (21:01)
[2016-04-09] MEDS: QUEtiapine FUMARATE 100 MG TABLET (FP) PO SCH (21:01)
[2016-04-09] MEDS: INSULIN DETEMIR 100 UNITS/ML MDV SQ SCH (21:04)
[2016-04-10] MEDS: GABAPENTIN 300 MG CAPSULE (FP) PO SCH ×3 (06:24→21:20)
[2016-04-10] MEDS: INSULIN SLIDING SCALE (NOVOLOG) 1 VIAL SQ SCH ×3 (06:25→17:07)
[2016-04-10] MEDS: metFORMIN HCL 500 MG TABLET (FP) PO SCH ×2 (06:25→17:07)
[2016-04-10] MEDS: ALBUTEROL SO4 2.5/IPRATROPIUM 0.5 INH SOL 3 ML VIAL.NEB. NEB SCH ×4 (09:22→21:22)
[2016-04-10] MEDS ORDERED: PT OWN MED DRAWER 7, Y5N ONE (10:14)
[2016-04-10] MEDS: predniSONE 10 MG TABLET (UD) PO SCH (10:15)
[2016-04-10] MEDS: PRENATAL VITAMINS W/ FOLIC ACID TABLET (FP) PO SCH (10:15)
[2016-04-10] MEDS: LIDOCAINE 5% TOPICAL PATCH TP SCH (10:15)
[2016-04-10] MEDS: RANITIDINE HCL 150 MG TABLET (FP) PO SCH ×2 (10:15→21:20)
[2016-04-10] MEDS: NICOTINE 14 MG/24 HOURS TOPICAL PATCH TD SCH (10:16)
[2016-04-10] MEDS: OXYBUTYNIN CHLORIDE 5 MG TABLET PO SCH ×2 (10:16→21:20)
[2016-04-10] MEDS: BUDESONIDE/FORMETEROL FUMARATE 80/4.5 mcg INHALER IH SCH ×2 (10:17→21:22)
[2016-04-10] MEDS: IBUPROFEN 600 MG TABLET (FP) PO PRN (10:19)
[2016-04-10] MEDS: MENTHOL/PHENOL 1 EACH UD MM PRN ×2 (10:19→21:24)
[2016-04-10] MEDS ORDERED: INSULIN (NOVOLOG) ASPART 100 UNITS/ML 10ML VIAL ONE ×2 (16:47→21:49)
[2016-04-10] MEDS: MONTELUKAST NA 10 MG TABLET PO SCH (21:20)
[2016-04-10] MEDS: ATORVASTATIN CA 10 MG TABLET (FP) PO SCH (21:20)
[2016-04-10] MEDS: QUEtiapine FUMARATE 100 MG TABLET (FP) PO SCH (21:20)
[2016-04-10] MEDS: diphenhydrAMINE HCL 50 MG CAPSULE PO SCH (21:20)
[2016-04-10] MEDS: THIAMINE HCL 100 MG TABLET (FP) PO SCH (21:22)
[2016-04-10] MEDS: INSULIN DETEMIR 100 UNITS/ML MDV SQ SCH (21:22)
[2016-04-11] MEDS: metFORMIN HCL 500 MG TABLET (FP) PO SCH ×2 (06:02→16:58)
[2016-04-11] MEDS: GABAPENTIN 300 MG CAPSULE (FP) PO SCH ×3 (06:02→21:21)
[2016-04-11] MEDS: INSULIN SLIDING SCALE (NOVOLOG) 1 VIAL SQ SCH ×3 (06:03→16:57)
[2016-04-11] MEDS: MENTHOL/PHENOL 1 EACH UD MM PRN ×2 (06:25→13:27)
[2016-04-11] MEDS ORDERED: PT OWN MED DRAWER 7, Y5N ONE ×2 (08:44→20:03)
[2016-04-11] MEDS: LIDOCAINE 5% TOPICAL PATCH TP SCH (10:02)
[2016-04-11] MEDS: PRENATAL VITAMINS W/ FOLIC ACID TABLET (FP) PO SCH (10:03)
[2016-04-11] MEDS: OXYBUTYNIN CHLORIDE 5 MG TABLET PO SCH ×2 (10:03→21:20)
[2016-04-11] MEDS: ALBUTEROL SO4 2.5/IPRATROPIUM 0.5 INH SOL 3 ML VIAL.NEB. NEB SCH ×4 (10:03→21:21)
[2016-04-11] MEDS: RANITIDINE HCL 150 MG TABLET (FP) PO SCH ×2 (10:03→21:20)
[2016-04-11] MEDS: predniSONE 5 MG TABLET (UD) PO SCH (10:04)
[2016-04-11] MEDS: NICOTINE 14 MG/24 HOURS TOPICAL PATCH TD SCH (10:05)
[2016-04-11] MEDS: BUDESONIDE/FORMETEROL FUMARATE 80/4.5 mcg INHALER IH SCH ×2 (10:06→21:18)
[2016-04-11] MEDS ORDERED: INSULIN (NOVOLOG) ASPART 100 UNITS/ML 10ML VIAL ONE ×2 (11:57→16:57)
[2016-04-11] MEDS: INSULIN DETEMIR 100 UNITS/ML MDV SQ SCH (21:19)
[2016-04-11] MEDS: diphenhydrAMINE HCL 50 MG CAPSULE PO SCH (21:20)
[2016-04-11] MEDS: QUEtiapine FUMARATE 100 MG TABLET (FP) PO SCH (21:20)
[2016-04-11] MEDS: MONTELUKAST NA 10 MG TABLET PO SCH (21:20)
[2016-04-11] MEDS: ATORVASTATIN CA 10 MG TABLET (FP) PO SCH (21:21)
[2016-04-11] MEDS: THIAMINE HCL 100 MG TABLET (FP) PO SCH (21:21)
[2016-04-12] MEDS: GABAPENTIN 300 MG CAPSULE (FP) PO SCH ×3 (06:16→21:22)
[2016-04-12] MEDS: metFORMIN HCL 500 MG TABLET (FP) PO SCH ×2 (07:03→17:06)
[2016-04-12] MEDS: INSULIN SLIDING SCALE (NOVOLOG) 1 VIAL SQ SCH ×3 (07:03→17:07)
[2016-04-12] MEDS: ALBUTEROL SO4 2.5/IPRATROPIUM 0.5 INH SOL 3 ML VIAL.NEB. NEB SCH ×4 (09:20→21:25)
[2016-04-12] MEDS: BUDESONIDE/FORMETEROL FUMARATE 80/4.5 mcg INHALER IH SCH ×2 (09:53→23:21)
[2016-04-12] MEDS: predniSONE 5 MG TABLET (UD) PO SCH (09:53)
[2016-04-12] MEDS: NICOTINE 14 MG/24 HOURS TOPICAL PATCH TD SCH (09:53)
[2016-04-12] MEDS: RANITIDINE HCL 150 MG TABLET (FP) PO SCH ×2 (09:53→21:22)
[2016-04-12] MEDS: OXYBUTYNIN CHLORIDE 5 MG TABLET PO SCH ×2 (09:53→21:22)
[2016-04-12] MEDS: PRENATAL VITAMINS W/ FOLIC ACID TABLET (FP) PO SCH (09:53)
[2016-04-12] MEDS: LIDOCAINE 5% TOPICAL PATCH TP SCH (09:54)
[2016-04-12] MEDS: MENTHOL/PHENOL 1 EACH UD MM PRN (10:01)
[2016-04-12] MEDS ORDERED: INSULIN (NOVOLOG) ASPART 100 UNITS/ML 10ML VIAL ONE ×3 (12:08→23:33)
[2016-04-12] MEDS ORDERED: INSULIN DETEMIR 100 UNITS/ML MDV SQ ONE ×2 (16:47→23:33)
[2016-04-12] MEDS: MONTELUKAST NA 10 MG TABLET PO SCH (21:22)
[2016-04-12] MEDS: QUEtiapine FUMARATE 100 MG TABLET (FP) PO SCH (21:22)
[2016-04-12] MEDS: ATORVASTATIN CA 10 MG TABLET (FP) PO SCH (21:22)
[2016-04-12] MEDS: diphenhydrAMINE HCL 50 MG CAPSULE PO SCH (21:22)
[2016-04-12] MEDS: THIAMINE HCL 100 MG TABLET (FP) PO SCH (21:22)
[2016-04-12] MEDS: INSULIN DETEMIR 100 UNITS/ML MDV SQ SCH (21:26)
[2016-04-13] MEDS: metFORMIN HCL 500 MG TABLET (FP) PO SCH ×2 (06:37→17:32)
[2016-04-13] MEDS: GABAPENTIN 300 MG CAPSULE (FP) PO SCH ×3 (06:38→21:25)
[2016-04-13] MEDS: INSULIN SLIDING SCALE (NOVOLOG) 1 VIAL SQ SCH ×3 (08:02→17:34)
[2016-04-13] MEDS: ALBUTEROL SO4 2.5/IPRATROPIUM 0.5 INH SOL 3 ML VIAL.NEB. NEB SCH ×4 (09:30→21:28)
[2016-04-13] MEDS: NICOTINE 14 MG/24 HOURS TOPICAL PATCH TD SCH (10:27)
[2016-04-13] MEDS: RANITIDINE HCL 150 MG TABLET (FP) PO SCH ×2 (10:28→21:25)
[2016-04-13] MEDS: PRENATAL VITAMINS W/ FOLIC ACID TABLET (FP) PO SCH (10:28)
[2016-04-13] MEDS: OXYBUTYNIN CHLORIDE 5 MG TABLET PO SCH ×2 (10:28→21:25)
[2016-04-13] MEDS: BUDESONIDE/FORMETEROL FUMARATE 80/4.5 mcg INHALER IH SCH ×2 (10:28→21:28)
[2016-04-13] MEDS: LIDOCAINE 5% TOPICAL PATCH TP SCH (10:29)
[2016-04-13] MEDS: MENTHOL/PHENOL 1 EACH UD MM PRN (10:30)
[2016-04-13] MEDS ORDERED: INSULIN (NOVOLOG) ASPART 100 UNITS/ML 10ML VIAL ONE ×2 (17:29→21:58)
[2016-04-13] MEDS ORDERED: INSULIN DETEMIR 100 UNITS/ML MDV SQ ONE ×2 (17:29→21:58)
[2016-04-13] MEDS: ATORVASTATIN CA 10 MG TABLET (FP) PO SCH (21:25)
[2016-04-13] MEDS: THIAMINE HCL 100 MG TABLET (FP) PO SCH (21:25)
[2016-04-13] MEDS: QUEtiapine FUMARATE 100 MG TABLET (FP) PO SCH (21:25)
[2016-04-13] MEDS: diphenhydrAMINE HCL 50 MG CAPSULE PO SCH (21:26)
[2016-04-13] MEDS: MONTELUKAST NA 10 MG TABLET PO SCH (21:28)
[2016-04-13] MEDS: INSULIN DETEMIR 100 UNITS/ML MDV SQ SCH (21:28)
[2016-04-14] MEDS: IBUPROFEN 600 MG TABLET (FP) PO PRN (06:18)
[2016-04-14] MEDS: metFORMIN HCL 500 MG TABLET (FP) PO SCH ×2 (06:19→17:06)
[2016-04-14] MEDS: INSULIN SLIDING SCALE (NOVOLOG) 1 VIAL SQ SCH ×3 (06:19→17:06)
[2016-04-14] MEDS: GABAPENTIN 300 MG CAPSULE (FP) PO SCH ×3 (06:19→21:28)
[2016-04-14] MEDS: ALBUTEROL SO4 2.5/IPRATROPIUM 0.5 INH SOL 3 ML VIAL.NEB. NEB SCH ×4 (09:30→21:33)
[2016-04-14] MEDS: BUDESONIDE/FORMETEROL FUMARATE 80/4.5 mcg INHALER IH SCH ×2 (10:06→21:30)
[2016-04-14] MEDS: LIDOCAINE 5% TOPICAL PATCH TP SCH (10:06)
[2016-04-14] MEDS: PRENATAL VITAMINS W/ FOLIC ACID TABLET (FP) PO SCH (10:07)
[2016-04-14] MEDS: NICOTINE 14 MG/24 HOURS TOPICAL PATCH TD SCH (10:07)
[2016-04-14] MEDS: RANITIDINE HCL 150 MG TABLET (FP) PO SCH ×2 (10:07→21:28)
[2016-04-14] MEDS: OXYBUTYNIN CHLORIDE 5 MG TABLET PO SCH ×2 (10:07→21:28)
[2016-04-14] MEDS: ACETAMINOPHEN 325 MG TABLET (FP) PO PRN (10:10)
[2016-04-14] MEDS ORDERED: PT OWN MED DRAWER 7, Y5N ONE (10:56)
[2016-04-14] MEDS: MINERAL OIL/PETROLAT/WATER TOPICAL CREAM 113 GM JAR TP PRN (11:05)
[2016-04-14] MEDS ORDERED: INSULIN (NOVOLOG) ASPART 100 UNITS/ML 10ML VIAL ONE ×3 (11:58→22:57)
[2016-04-14] MEDS: CYCLOBENZAPRINE HCL 10 MG TABLET (FP) PO SCH ×2 (13:38→21:33)
[2016-04-14] MEDS: diphenhydrAMINE HCL 50 MG CAPSULE PO SCH (21:28)
[2016-04-14] MEDS: THIAMINE HCL 100 MG TABLET (FP) PO SCH (21:28)
[2016-04-14] MEDS: ATORVASTATIN CA 10 MG TABLET (FP) PO SCH (21:28)
[2016-04-14] MEDS: QUEtiapine FUMARATE 100 MG TABLET (FP) PO SCH (21:28)
[2016-04-14] MEDS: MONTELUKAST NA 10 MG TABLET PO SCH (21:30)
[2016-04-14] MEDS: INSULIN DETEMIR 100 UNITS/ML MDV SQ SCH (21:31)
[2016-04-15] MEDS: GABAPENTIN 300 MG CAPSULE (FP) PO SCH ×3 (06:00→21:26)
[2016-04-15] MEDS: metFORMIN HCL 500 MG TABLET (FP) PO SCH ×2 (06:21→16:31)
[2016-04-15] MEDS: INSULIN SLIDING SCALE (NOVOLOG) 1 VIAL SQ SCH ×3 (06:22→16:32)
[2016-04-15] MEDS ORDERED: PT OWN MED DRAWER 7, Y5N ONE ×3 (08:31→20:16)
[2016-04-15] MEDS: ALBUTEROL SO4 2.5/IPRATROPIUM 0.5 INH SOL 3 ML VIAL.NEB. NEB SCH ×4 (10:09→22:00)
[2016-04-15] MEDS: PRENATAL VITAMINS W/ FOLIC ACID TABLET (FP) PO SCH (10:10)
[2016-04-15] MEDS: OXYBUTYNIN CHLORIDE 5 MG TABLET PO SCH ×2 (10:10→21:27)
[2016-04-15] MEDS: CYCLOBENZAPRINE HCL 10 MG TABLET (FP) PO SCH ×2 (10:10→21:27)
[2016-04-15] MEDS: LIDOCAINE 5% TOPICAL PATCH TP SCH (10:10)
[2016-04-15] MEDS: NICOTINE 14 MG/24 HOURS TOPICAL PATCH TD SCH (10:11)
[2016-04-15] MEDS: RANITIDINE HCL 150 MG TABLET (FP) PO SCH ×2 (10:11→21:27)
[2016-04-15] MEDS: BUDESONIDE/FORMETEROL FUMARATE 80/4.5 mcg INHALER IH SCH ×2 (10:11→21:28)
[2016-04-15] MEDS ORDERED: INSULIN (NOVOLOG) ASPART 100 UNITS/ML 10ML VIAL ONE (16:32)
[2016-04-15] MEDS: diphenhydrAMINE HCL 50 MG CAPSULE PO SCH (21:27)
[2016-04-15] MEDS: MONTELUKAST NA 10 MG TABLET PO SCH (21:27)
[2016-04-15] MEDS: ATORVASTATIN CA 10 MG TABLET (FP) PO SCH (21:27)
[2016-04-15] MEDS: THIAMINE HCL 100 MG TABLET (FP) PO SCH (21:28)
[2016-04-15] MEDS: INSULIN DETEMIR 100 UNITS/ML MDV SQ SCH (21:28)
[2016-04-15] MEDS: QUEtiapine FUMARATE 100 MG TABLET (FP) PO SCH (21:28)
[2016-04-16] MEDS: metFORMIN HCL 500 MG TABLET (FP) PO SCH (06:47)
[2016-04-16] MEDS: GABAPENTIN 300 MG CAPSULE (FP) PO SCH (06:47)
[2016-04-16] MEDS: INSULIN SLIDING SCALE (NOVOLOG) 1 VIAL SQ SCH (06:48)
[2016-04-16 07:21] VITALS: BP 152/92; PULSE 89; TEMP 97.8
[2016-04-16] MEDS: NICOTINE 14 MG/24 HOURS TOPICAL PATCH TD SCH (09:01)
[2016-04-16] MEDS: CYCLOBENZAPRINE HCL 10 MG TABLET (FP) PO SCH (09:01)
[2016-04-16] MEDS: RANITIDINE HCL 150 MG TABLET (FP) PO SCH (09:01)
[2016-04-16] MEDS: OXYBUTYNIN CHLORIDE 5 MG TABLET PO SCH (09:01)
[2016-04-16] MEDS: PRENATAL VITAMINS W/ FOLIC ACID TABLET (FP) PO SCH (09:01)
[2016-04-16] MEDS: BUDESONIDE/FORMETEROL FUMARATE 80/4.5 mcg INHALER IH SCH (09:02)
[2016-04-16] MEDS: LIDOCAINE 5% TOPICAL PATCH TP SCH (09:02)
[2016-04-16] MEDS: ALBUTEROL SO4 2.5/IPRATROPIUM 0.5 INH SOL 3 ML VIAL.NEB. NEB SCH (09:04)
--- NOTE | 2016-04-16 09:45 | PN ---
Psychiatric Progress Note Vital Signs: Vital Signs Period Temp Pulse Resp BP Sys/Santiago Pulse Ox Last 24 Hr 97.8 F 89-112 18-20 113-152/76-92 Date of Session: 04/16/16 Chief Complaint:: Discharge visit HPI: Patient addressed Alcohol and Cocaine dependence comorbid with Substance induced mood disorder. ROS: Significant for COPD,DM,Urinary incontinence . Current Medications: Active Medications Generic Name Dose Route Start Last Admin Trade Name Freq PRN Reason Stop Dose Admin Acetaminophen 650 mg 03/26/16 21:50 04/14/16 10:10 Tylenol - PO 650 mg Q4H PRN Administration PAIN Al Hydroxide/Mg Hydroxide 30 ml 03/26/16 21:50 04/01/16 08:42 Mylanta Oral Suspension - PO 30 ml Q6H PRN Administration DYSPEPSIA Albuterol Sulfate 2 puff 03/26/16 22:10 04/05/16 16:19 Ventolin Hfa Inhaler - IH 2 puff Q4H PRN Administration SHORT OF BREATH/WHEEZING Albuterol/Ipratropium 1 amp 04/04/16 15:04 04/09/16 06:02 Duoneb - NEB 1 amp Q4H PRN Administration SHORTNESS OF BREATH Albuterol/Ipratropium 1 amp 04/04/16 18:00 04/16/16 09:04 Duoneb - NEB Not Given QID SUGEY Atorvastatin Calcium 10 mg 03/27/16 22:00 04/15/16 21:27 Lipitor - PO 10 mg HS SUGEY Administration Budesonide/Formoterol Fumarate 2 puff 03/27/16 10:00 04/16/16 09:02 Symbicort 80/4.5mcg - IH 2 puff BID SUGEY Administration Cyclobenzaprine HCl 10 mg 04/14/16 12:30 04/16/16 09:01 Flexeril - PO 10 mg BID SUGEY Administration Diphenhydramine HCl 100 mg 03/28/16 22:00 04/15/16 21:27 Benadryl - PO 100 mg HS SUGEY Administration Docusate Sodium 100 mg 03/26/16 22:11 Colace - PO Q8H PRN CONSTIPATION Eucalyptus/Menthol/Phenol/Sorbitol 1 each 03/26/16 21:50 04/13/16 10:30 Cepastat Lozenge - MM 1 each Q4H PRN Administration SORE THROAT Gabapentin 600 mg 03/27/16 06:00 04/16/16 06:47 Neurontin - PO 600 mg TID SUGEY Administration Guaifenesin 10 ml 03/26/16 21:50 Robitussin Dm - PO Q6H PRN COUGH Hydroxyzine Pamoate 50 mg 03/26/16 22:00 Vistaril - PO Q4H PRN AGITATION Ibuprofen 600 mg 03/26/16 22:46 04/14/16 06:18 Motrin - PO 600 mg Q6H PRN Administration SEVERE PAIN Insulin Aspart 1 vial 03/27/16 07:00 04/16/16 06:48 Novolog Vial Sliding Scale - SQ Not Given TIDAC [facility] Protocol Insulin Detemir 10 units 03/28/16 22:00 04/15/16 21:28 Levemir Vial SQ Not Given HS SUGEY Lidocaine 2 patch 04/08/16 14:00 04/16/16 09:02 Lidoderm Patch - TP 2 patch DAILY SUGEY Administration Loperamide HCl 4 mg 03/26/16 21:50 03/27/16 13:54 Imodium - PO 4 mg Q6H PRN Administration DIARRHEA Magnesium Citrate 300 ml 03/26/16 21:50 Citroma - PO Q48H PRN CONSTIPATION Magnesium Hydroxide 30 ml 03/26/16 21:50 Milk Of Magnesia - PO DAILY PRN CONSTIPATION Metformin HCl 500 mg 03/27/16 07:00 04/16/16 06:47 Glucophage - PO 500 mg BID@0700,1630 SUGEY Administration Montelukast Sodium 10 mg 03/27/16 22:00 04/15/16 21:27 Singulair - PO 10 mg HS [facility] Administration Multi-Ingredient Lotion 1 applic 03/31/16 14:24 04/14/16 11:05 Eucerin (Small Jar) - TP 1 applic BID PRN Administration DRY SKIN Nicotine 14 mg 03/27/16 10:00 04/16/16 09:01 Nicoderm Patch - TD 14 mg DAILY SUGEY Administration Nicotine Polacrilex 2 mg 03/26/16 22:00 04/03/16 10:04 Nicorette Gum - BUC 2 mg Q2H PRN Administration NICOTINE REPLACEMENT RX Oxybutynin Chloride 5 mg 03/27/16 10:00 04/16/16 09:01 Ditropan - PO 5 mg BID SUGEY Administration Multivit/Folic Acid/Iron 1 tab 03/27/16 10:00 04/16/16 09:01 Vitamins (Sjr) - PO 1 tab DAILY SUGEY Administration Pseudoephedrine/Triprolidine 1 combo 03/26/16 21:50 Actifed - PO TID PRN NASAL CONGESTION Quetiapine Fumarate 100 mg 04/02/16 22:00 04/15/16 21:28 Seroquel - PO 100 mg HS SUGEY Administration Ranitidine HCl 150 mg 04/01/16 22:00 04/16/16 09:01 Zantac - PO 150 mg BID SUGEY Administration Thiamine HCl 100 mg 03/26/16 22:00 04/15/16 21:28 Vitamin B1 - PO 100 mg HS SUGEY Administration Current Side Effect: No Lab tests ordered: Yes Provider note:: Patient completed this program today.She has met her treatment goals and will continue to address her issues at [facility] in the [place].Patient continues to find that current medications:Seroquel 100 mg po hs and Neurontin 600 mg po tid help to reduce her anxiety,mood instability.Scripts for 30 days provided. Patient identifies areas of difficulties ,focuses on insight gaining in treatment including importance of changing attitude and ways she plans to utilize to maintain recovery. Patient is stable for discharge today. Total face to face time:: 30 Mental Status Exam - Mental Status Exam Alert and Oriented to: Time, Place, Person Cognitive Function: Grossly Intact Patient Appearance: Well Groomed Mood: Euthymic Affect: Mood Congruent Patient Behavior: Cooperative Speech Pattern: Clear Voice Loudness: Normal Thought Process: Goal Oriented Thought Disorder: Not Present Hallucinations: Denies Suicidal Ideation: Denies Homicidal Ideation: Denies Insight/Judgement: Fair Sleep: Fair Appetite: Fair Muscle strength/Tone: Normal Gait/Station: Normal Psychiatric Treatment Plan - Problem List (1) Asthma Current Visit: Yes Qualifiers: Asthma severity: mild persistent Asthma complication type: with status asthmaticus Qualified Code(s): J45.32 - Mild persistent asthma with status asthmaticus (2) COPD (chronic obstructive pulmonary disease) Current Visit: Yes Qualifiers: COPD type: emphysema Emphysema type: unilateral Qualified Code(s ): J43.0 - Unilateral pulmonary emphysema [MacLeod's syndrome] (3) Diabetes mellitus, type II, insulin dependent Current Visit: Yes Comment: BGM/METFORMIN/ (4) Diabetes with ulcer of lower extremity Current Visit: Yes Comment: RIGHT ANKLE (5) Nicotine dependence Current Visit: Yes Qualifiers: Nicotine product type: cigarettes Substance use status: uncomplicated Qualified Code(s): F17.210 - Nicotine dependence, cigarettes, uncomplicated (6) Urinary incontinence Current Visit: Yes Qualifiers: Urinary Incontinence type: stress incontinence Qualified Code(s): N39.3 - Stress incontinence (female) (male) (7) Cocaine dependence Current Visit: Yes (8) Substance-induced sleep disorder Current Visit: Yes
== END 2016-04-16 09:27 | disposition home or self-care (01) | DRG 772 ==
LOC: YASAS 17:59 → Y3E 21:33
PROVIDERS: ADMIT Psychiatry & Neurology Psychiatry; ATTEND Psychiatry & Neurology Psychiatry
PROC: HZ42ZZZ Group Counseling for Substance Abuse Treatment, Cognitive-Behavioral (ICD-10-PCS; principal; 2016-03-26)
DX: F10.20 Alcohol dependence, uncomplicated (principal); F14.20 Cocaine dependence, uncomplicated; F17.210 Nicotine dependence, cigarettes, uncomplicated; F19.282 Other psychoactive substance dependence with psychoactive substance-induced sleep disorder; F34.1 Dysthymic disorder; J45.32 Mild persistent asthma with status asthmaticus; J43.0 Unilateral pulmonary emphysema [MacLeod's syndrome]; E11.42 Type 2 diabetes mellitus with diabetic polyneuropathy; Z79.4 Long term (current) use of insulin; E11.622 Type 2 diabetes mellitus with other skin ulcer; L97.319 Non-pressure chronic ulcer of right ankle with unspecified severity; N39.3 Stress incontinence (female) (male); K59.01 Slow transit constipation
CPT/HCPCS: 36415; 71020-TC; 80053; 81003; 81015; 83036; 85027; 86593; 87389; 93005; 93010; 94640